=== PATIENT | male | born 1980 | race African-American/Black ===

== ENCOUNTER 2018-06-17 21:35 | Emergency (ER) | payer OTHER ==
[~2018-06-17] VITALS: Ht 177.8 cm; Wt 88.0 kg
[2018-06-17] MEDS ORDERED: KEFLEX500 M1 PO (22:21)
[2018-06-17] MEDS ORDERED: IBUPROFEN 800800 M1 PO (22:29)
[2018-06-17 22:44] VITALS: BP 117/60
== END 2018-06-17 22:45 | disposition home or self-care (01) ==
LOC: M.ERS 21:35
DX: S61.214A Laceration without foreign body of right ring finger without damage to nail, initial encounter (principal); J45.909 Unspecified asthma, uncomplicated; Z88.8 Allergy status to other drugs, medicaments and biological substances; W01.0XXA Fall on same level from slipping, tripping and stumbling without subsequent striking against object, initial encounter; Y93.89 Activity, other specified; Y92.89 Other specified places as the place of occurrence of the external cause; Y99.8 Other external cause status